=== PATIENT | female | born 1980 | race Caucasian/White ===

== ENCOUNTER 2017-07-16 09:57 | Emergency (ER) | payer OTHER ==
[~2017-07-16] VITALS: Ht 170.2 cm; Wt 95.2 kg
[2017-07-16 10:03] VITALS: Ht 170.2 cm; Wt 95.2 kg
[2017-07-16 11:08] VITALS: BP 145/80
== END 2017-07-16 13:05 | disposition home or self-care (01) ==
LOC: ED 09:57
DX: S16.1XXA Strain of muscle, fascia and tendon at neck level, initial encounter (principal); M54.12 Radiculopathy, cervical region; W01.0XXA Fall on same level from slipping, tripping and stumbling without subsequent striking against object, initial encounter; Y93.89 Activity, other specified; Y92.89 Other specified places as the place of occurrence of the external cause; Y99.8 Other external cause status; S09.90XA Unspecified injury of head, initial encounter
CPT/HCPCS: J1885; J3010; Q0162